=== PATIENT | female | born 1955 | race Caucasian/White ===

== ENCOUNTER 2022-03-18 15:40 | Outpatient (CLI) | payer OTHER ==
[2022-03-18 16:41] VITALS: BP 134/74
--- NOTE | 2022-03-18 16:41 | SLEEP CARE CONSULTATION ---
Information from patient questionnaire entered by Freda Brooke. I have reviewed and concur with the information entered by Freda Brooke. This document represents the service I personally performed and the decisions made by me, Julianne Bassett ARNP. History of Present Illness Service Date and Time: 03/18/2022 1540 Reason for Visit: New patient, sleep apnea on CPAP therapy Chief Complaint: reports: Insomnia, Excessive daytime sleepiness, Fatigue, Frequent awakenings at night Date of Onset: YEARS Usual bedtime: 10:00 TO 10:30 Time it takes to fall asleep: 0-60 MINUTES Snores at night: No Sleeps alone due to snoring: No Number of times waking at night: 3-4 Reasons for waking at night: reports: Pain, Bathroom, Other (RESTLESS LEG) Toss, Turn, or Twitch while sleeping: Yes Recalls having dreams: Yes Usually gets out of bed at: 6:15 Feels refreshed in the morning: No Morning headache: Yes (IN AN HOUR AFTER MEDS) Sleepy or fatigued during the day: Yes Ever fallen asleep while driving: No Takes day naps: No Prior sleep studies: Yes Year and Where: [facility][NOTE 3], UNSURE OF DATES Additional HPI information: SOHAIL WEAVER was previously diagnosed to have unknown, AHI unknown, sleep apnea-hypopnea syndrome and comes in today to establish care for BIPAP therapy. - Parasomnia Symptoms Ever been unable to move upon waking from sleep: No Walks in sleep: No Talks in sleep: No Ever acted out dreams in sleep: No Ever felt weak in the knees when startled or emotional: No Bothered by creepy, crawly, restless sensations in legs: Yes Problems with memory or concentration: Yes (MY HUBBY SAYS YES ) CPAP Compliance Data Compliance data discussion: She is getting her supplies from [employer]. She has a ResMed Airsense 10 Bipap. She is using a nasal cushion by [employer]. She does change her nasal cushion regularly, when it starts to leak. She keeps an extra mask for a backup. Subjective Patient concerns: denies: aerophagia, mask discomfort, air blowing in eyes, mask leak noise, condensation in mask/hose, nasal congestion, dry mouth, nose, throat, epistaxis Observed to snore while using device: No Current pressure setting perceived as: comfortable On therapy, patient: reports: sleeping better, awakening more refreshed, being more awake and alert during the day, more rested overall, other (states she can't sleep without it). 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 Patient is and lives in [place]. Have you smoked in the past 12 months: No Alcohol use: No Caffeine use: No Family History Family history of sleep disordered breathing: No Allergies and Home Medications Drug allergies reviewed: Yes (naproxen, penicillin, sulfa, erythromycin, vicodin, cipro, percocet) Home medication list reviewed: Yes (see list scanned in chart) Review of Systems Weight loss over past 5 years: 50 LBS, kept off 1.5 yrs Cardiovascular: reports: high blood pressure Respiratory: reports: sputum production Gastrointestinal: reports: heartburn Neurological: reports: headaches Ear/Nose/Throat: reports: nasal congestion, sinus problems, tonsillectomy, wisdom teeth removed Musculoskeletal: reports: joint pain, neck pain, back pain, muscle pain or cramping Immunologic: reports: sneezing Physical Exam Vital signs obtained and entered by: SOPHIE Yanez MA Blood Pressure: 134/74 (left arm ) Cuff size: long Heart Rate: 78 O2 Saturation: 98 Height: 5 ft 6.5 in Weight: 204 lb Body Mass Index: 32.4 BMI Classification: Obese Neck circumference: 17 (inches ) Impression and Plan 1. Obstructive Sleep Apnea-Hypopnea Syndrome, unknown, with unknown treatment compliance and unknown apnea control. Patient brought in her SD card but we had difficulty downloading her data. We will keep her card and let her know when we are done downloading her data. On BIPAP therapy, the patient has better sleep quality and is more rested overall. She states she cannot sleep without it. She still suffers from insomnia, frequent awakening during the night, and excessive daytime sleepiness. Her last sleep study was done about 10 + years ago. She was informed by her DME, [employer], that she needs a new sleep study to re-qualify for PAP therapy. I recommend proceeding to polysomnography to confirm the diagnosis and to assess severity. I obtained agreement to proceed. Patient's apnea severity and rationale for treatment to reduce apnea, improve sleep quality and reduce cardiovascular and cerebrovascular events was reviewed. I also reviewed the benefit of consistent device use of BIPAP for hypertension, diabetes, RLS and fibromyalgia. 2. Obesity, unspecified. Currently patients BMI is 32.4. She has lost weight in past but is gaining a little right now. She is watching her carbs. Obesity increases the risk of apnea, BIPAP pressure requirements and overall health risks especially cardiovascular and diabetes. Thus patient is advised to lose w eight. * Continue BIPAP pressure at unknown cmH2O * Polysomnography to verify diagnosis and requalify for treatment * Notify me if snoring with mask or feeling that the pressure is too much or too little * Continue to try to lose weight * Call this office if any problems using BIPAP * Return for follow up after sleep study completed, or sooner if concerns arise Counseling Topics: Spare mask, Weight loss health impact Visit Type: In Office Time Spent with Patient (minutes): 36 Provider Statement: I spent 100% of the Face to Face Visit with the patient with greater than 50% spent counseling the patient and coordination of care.
== END 2022-03-18 15:41 | disposition home or self-care (01) ==
LOC: SC 15:40
PROVIDERS: ATTEND Nurse Practitioner Family
DX: G47.33 Obstructive sleep apnea (adult) (pediatric) (principal); I10 Essential (primary) hypertension; E11.9 Type 2 diabetes mellitus without complications; E66.9 Obesity, unspecified; Z68.32 Body mass index [BMI] 32.0-32.9, adult
CPT/HCPCS: 99203; 99212

== ENCOUNTER 2022-05-15 19:35 | Outpatient (CLI) | payer OTHER | END 2022-05-15 19:36 | disposition home or self-care (01) | LOC: SC 19:35 | PROVIDERS: ATTEND Nurse Practitioner Family | DX: G47.33 Obstructive sleep apnea (adult) (pediatric) (principal); E11.9 Type 2 diabetes mellitus without complications; I10 Essential (primary) hypertension; G47.61 Periodic limb movement disorder | CPT/HCPCS: 95810 ==

== ENCOUNTER 2022-06-19 15:24 | Outpatient (CLI) | payer OTHER ==
--- NOTE | 2022-06-19 15:53 | SLEEP CARE CONSULTATION ---
Information from patient questionnaire entered by Lanette Nails. I have reviewed and concur with the information entered by Lanette Nails. This document represents the service I personally performed and the decisions made by , Julianne Bassett ARNP. History of Present Illness Service Date and Time: 06/19/2022 1524 Initial [place] Sleepiness Scale score: 5 (02/19/22) Current [place] Sleepiness Scale score: 6 (06/19/22) Additional HPI information: SOHAIL WEAVER returns for follow up and results of the recently performed polysomnography. I explained the pathophysiology behind obstructive sleep apnea. We then spent quite a bit of time discussing different treatment options. For mild obstructive sleep apnea, surgery and oral appliance are alternatives to nasal CPAP therapy but in moderate or severe cases, nasal CPAP is the most effective and reliable treatment. Patient to continue with current BiPAP with pressure settings 13/5 cmH2O with 4 cmH2O pressure support. Patient does not drink alcohol. Patient was cautioned about risks of drowsy driving until sleepiness symptoms resolve. Patient denies drowsy driving. Sleep Study - Results Type of Sleep Study: Polysomnography (COMPLETED 05/15/22) Prior sleep studies: Yes Year and Where: [facility], UNSURE OF DATES Polysomnography/Home Sleep Study results: IMPRESSION: The quality of the study is good. The patient had slightly reduced sleep efficiency. The sleep architecture was abnormal for sleep fragmentation and reduced amount of time spent in REM sleep. Respiratory monitoring showed mild obstructive sleep apnea-hypopnea (AHI = 7.4) associated with frequent arousals, oxyhemoglobin desaturation and mild hypoxia (margaret oxygen saturation of 81%). Baseline oxygen saturation was low-normal at 91%. The respiratory events occurred mainly during supine sleep (supine AHI = 8.8; non-supine = 5.14). Snore was moderate in intensity. There was moderate periodic leg movement of sleep not contributing to the sleep fragmentation. Cardiac rhythm was normal sinus rhythm without significant arrhythmia. No abnormal behavior (parasomnia) observed during the night. Allergies and Home Medications Known drug allergies: Yes Drug allergies reviewed: Yes Home medication list reviewed: Yes (modafinil 100 mg daily; stopped amlodipine) Allergy and home medication list: Allergies naproxen Allergy (Verified 06/19/22 10:12) Anaphylaxis Penicillins Allergy (Verified 06/19/22 10:12) Anaphylaxis Sulfa (Sulfonamide Antibiotics) Allergy (Verified 06/19/22 10:12) Anaphylaxis acetaminophen [From Vicodin] Adverse Reaction (Verified 06/19/22 10:12) Hallucinations ciprofloxacin [From Cipro] Adverse Reaction (Verified 06/19/22 10:12) Itching erythromycin base Adverse Reaction (Verified 06/19/22 10:12) Nausea hydrocodone [From Vicodin] Adverse Reaction (Verified 06/19/22 10:12) Hallucinations oxycodone [From Percocet] Adverse Reaction (Verified 06/19/22 10:12) Rash terconazole Adverse Reaction (Verified 06/19/22 10:12) Rash Review of Systems Review of systems same as previous: Yes (no changes) Physical Exam Vital signs obtained and entered by: LANETTE Ashley MA Blood Pressure: 118/78 (LEFT ARM ) Cuff size: regular Heart Rate: 77 O2 Saturation: 96 Height: 5 ft 6.5 in Weight: 214 lb (PER PT) Body Mass Index: 34.0 BMI Classification: Obese Impression and Plan 1. Obstructive Sleep Apnea-Hypopnea Syndrome, mild, with lowest oxygen saturation of 81%. Patient qualifies for continued PAP therapy. She may continue on current BiPAP on 13/5 cmH2O with 4 cmH2O pressure support. She has started using Modafinil 100 mg daily to help with her daytime sleepiness. She states it is working well for her and she has not had to use the extra 1/2 pill in afternoon for afternoon sleepiness more than 1 time a month. Patient's apnea severity and rationale for treatment to reduce apnea, improve sleep quality and reduce cardiovascular and cerebrovascular events was reviewed. I also reviewed the benefit of consistent device use of BiPAP for hypertension, diabetes, fibromyalgia and RLS. 2. Periodic limb movement, moderate, that did not fragment patients sleep. Patient has history of RLS. Periodic limb movement of sleep (PLMS) is characterized by episodes of repetitive limb movements that occur during sleep and usually involve the lower limbs. The etiology is unknown. Caffeine can aggravate PLMS and should be avoided. Sleep hygiene methods can also improve sleep as well as lifestyle changes such as regular exercise. Patient was advised that no treatment is needed at this time. If symptoms increase, then further evaluation is indicated. * Continue BiPAP pressure at 13/5 cmH2O with 4 cmH2O pressure support * Notify me if snoring with mask or feeling that the pressure is too much or too little * Attempt to lose weight * Call this office if any problems using BiPAP * Return for follow up in 1 year, or sooner if concerns arise Counseling Topics: Spare mask, Weight loss health impact Visit Type: In Office Time Spent with Patient (minutes): 21 Provider Statement: I spent 100% of the Face to Face Visit with the patient with greater than 50% spent counseling the patient and coordination of care.
[2022-06-19 16:15] VITALS: BP 118/78
== END 2022-06-19 15:25 | disposition home or self-care (01) ==
LOC: SC 15:24
PROVIDERS: ATTEND Nurse Practitioner Family
DX: G47.33 Obstructive sleep apnea (adult) (pediatric) (principal); G47.61 Periodic limb movement disorder; E66.9 Obesity, unspecified; Z68.34 Body mass index [BMI] 34.0-34.9, adult
CPT/HCPCS: 99212; 99213

== ENCOUNTER 2023-06-02 12:14 | Outpatient (CLI) | payer OTHER | END 2023-06-02 12:15 | disposition home or self-care (01) | LOC: RT 12:14 | PROVIDERS: ATTEND Family Medicine | DX: R07.9 Chest pain, unspecified (principal) | CPT/HCPCS: 93005 ==

== ENCOUNTER 2023-09-21 16:01 | Outpatient (CLI) | payer OTHER ==
--- NOTE | 2023-09-21 16:47 | Sleep Patient Instructions ---
Sleep Center Visit Summary - Patient Visit Information Reason for Visit: Annual follow-up - Patient Instructions Additional Instructions: You will continue with BiPAP therapy with pressure set at 13/5 cmH2O with 4 cmH2O pressure support. A supply prescription will be updated with your DME. I have added an order to update your PAP machine. Please call the office to schedule a compliance follow up once you get your new device. We encourage you to continue to try to lose weight. Please follow up with the sleep care office one month after obtaining new device. - Clinic Information Contact: [facility] [address] [place] [address] [email or web address] T: [phone]
--- NOTE | 2023-09-21 16:52 | SLEEP CARE CONSULTATION ---
Information from patient questionnaire entered by Lanette Nails. I have reviewed and concur with the information entered by Lanette Nails. This document represents the service I personally performed and the decisions made by me, Julianne Bassett ARNP. History of Present Illness Service Date and Time: 09/21/2023 1601 Previous diagnosis: Mild, Obstructive Sleep Apnea-Hypopnea Syndrome AHI: 7.4 (on 05/15/22) Reason for follow up: annual (LAST SEEN 06/2022) Equipment type: BiPAP (RESMED AirCurve 10, s/u 12/17/2015) Equipment obtained from: [employer] (getting supplies) Mask style: Nasal Mask brand: Resmed Backup mask available: Yes Last cushion change: 11 days Prior sleep studies: Yes Year and Where: [facility], UNSURE OF DATES Type of Sleep Study: Polysomnography (COMPLETED 05/15/22) HPI additional information: SOHAIL WEAVER was diagnosed to have mild, AHI 7.4, obstructive sleep apnea- hypopnea syndrome and returned today for BIPAP therapy annual follow-up. Sleep Study - Results Type of Sleep Study: Polysomnography (COMPLETED 05/15/22) Prior sleep studies: Yes Year and Where: [facility], UNSURE OF DATES CPAP Compliance Data - Data Reviewed with Patient Average duration of nightly device use: 8 HRS 7 MINS Compliance rate %: 100 (05/19/22-05/18/23; 364/365 days used) Current pressure setting (cmH2O): 13/5 with 4 cmH2O pressure support Average residual AHI: 0.4 Central apnea: 0 Obstructive apnea: 0.3 Average large leak: 2.5 Compliance data discussion: She is using her machine every night. It looks like it is not recording since 05/2023. Her machine data showed: for the last 6 months, 179/180 days used with 8.3 hours nightly average use. He average AHI is at 0.4. Subjective Patient concerns: reports: dry mouth, nose, throat (better with humidifier, t hinks it is med related). denies: aerophagia, mask discomfort, air blowing in eyes, mask leak noise, condensation in mask/hose, nasal congestion, epistaxis Observed to snore while using device: No Current pressure setting perceived as: comfortable On therapy, patient: reports: sleeping better, awakening more refreshed, being more awake and alert during the day, more rested overall. denies: drowsiness while driving Initial [place] Sleepiness Scale score: 5 (02/19/22) Current [place] Sleepiness Scale score: 1 Allergies and Home Medications Known drug allergies: Yes (as listed) Drug allergies reviewed: Yes Home medication list reviewed: Yes (no changes) Allergy and home medication list: Allergies naproxen Allergy (Verified 09/17/23 13:41) Anaphylaxis Penicillins Allergy (Verified 09/17/23 13:41) Anaphylaxis Sulfa (Sulfonamide Antibiotics) Allergy (Verified 09/17/23 13:41) Anaphylaxis acetaminophen [From Vicodin] Adverse Reaction (Verified 09/17/23 13:41) Hallucinations ciprofloxacin [From Cipro] Adverse Reaction (Verified 09/17/23 13:41) Itching erythromycin base Adverse Reaction (Verified 09/17/23 13:41) Nausea hydrocodone [From Vicodin] Adverse Reaction (Verified 09/17/23 13:41) Hallucinations oxycodone [From Percocet] Adverse Reaction (Verified 09/17/23 13:41) Rash terconazole Adverse Reaction (Verified 09/17/23 13:41) Rash Review of Systems Review of systems same as previous: No (Right shoulder replacement surgery, 05/28/23) Physical Exam Vital signs obtained and entered by: JULIANNE JOHNSTON-Dion Blood Pressure: 149/94 Cuff size: long (left arm) Heart Rate: 70 O2 Saturation: 96 Height: 5 ft 6.5 in Weight: 217 lb Body Mass Index: 34.4 BMI Classification: Obese Impression and Plan 1. Obstructive Sleep Apnea-Hypopnea Syndrome, mild, with good treatment compliance and good apnea control. On BiPAP therapy, the patient has better sleep quality and is more rested overall. Her BIPAP was last updated in 2016. The patients CPAP is over 5 years old and of reasonable use. Thus, the CPAP will be updated. The new CPAPs also have a better humidity system which could assist control of patients dryness symptoms. A DWO prescription will be made. Compliance guidelines for new device and follow up discussed. Patient's apnea severity and rationale for treatment to reduce apnea, improve sleep quality and reduce cardiovascular and cerebrovascular events was reviewed. I also reviewed the benefit of consistent device use of BIPAP for hypertension, diabetes, fibromyalgia, RLS. 2. Obesity, unspecified. Currently patients BMI is 34.4. Obesity increases the risk of apnea, BiPAP pressure requirements and overall health risks especially cardiovascular and diabetes. Thus patient is advised to lose weight. * Continue BIPAP pressure at 13/5 cmH2O with 4 cmH2O pressure support * Update supply prescription * Update machine * Notify me if snoring with mask or feeling that the pressure is too much or too little * Attempt to lose weight * Call this office if any problems using BIPAP * Return for follow up one month after obtaining new device, or sooner if concerns arise Counseling Topics: Spare mask, Weight loss health impact Prescriptions: BiPAP, Device supplies Plan: compliance followup with new device Visit Type: In Office Time Spent with Patient (minutes): 28 Provider Statement: I spent 100% of the Face to Face Visit with the patient with greater than 50% spent counseling the patient and coordination of care.
[2023-09-21 17:00] VITALS: BP 149/94; O2SAT 96
== END 2023-09-21 16:02 | disposition home or self-care (01) ==
LOC: SC 16:01
PROVIDERS: ATTEND Nurse Practitioner Family
DX: G47.33 Obstructive sleep apnea (adult) (pediatric) (principal); E66.9 Obesity, unspecified; Z68.34 Body mass index [BMI] 34.0-34.9, adult
CPT/HCPCS: 99212; 99213